=== PATIENT | female | born 1980 | race Asian ===

== ENCOUNTER 2018-05-03 06:45 | Day surgery (SDC) | payer OTHER ==
[~2018-05-03] VITALS: Ht 154.9 cm; Wt 62.0 kg
[~2018-05-03 06:45] MED LIST: SODIUM CHLORIDE 0.9% 1,000 ML IV ONE
[2018-05-03] MEDS ORDERED: LIDOCAINE 2% 30 ML JELLY TP ONE (06:46)
[2018-05-03] MEDS ORDERED: BENZOCAINE 20% 50 MCG/SPRAY 57 GM TP ONE (06:46)
[2018-05-03] MEDS ORDERED: ALBUTEROL SULFATE 2.5 MG/0.5 ML NEB SOLUTION NEB ONE (06:46)
[2018-05-03] MEDS ORDERED: LIDOCAINE 4% 50 ML SOLUTION TP ONE (06:46)
[2018-05-03] MEDS ORDERED: BUDE10.2 IH (07:29)
[2018-05-03] MEDS ORDERED: MIDAZOLAM HCL 2 MG/2 ML VIAL ONE (07:39)
[2018-05-03] MEDS ORDERED: FentaNYL CITRATE-PF 100 MCG/2 ML VIAL ONE (07:39)
[2018-05-03] MEDS ORDERED: SODIUM CHLORIDE 0.9% 1,000 ML IV ONE (08:00)
[2018-05-03] MEDS ORDERED: MethylPREDNISolone SOD SUCC 125 MG/2 ML VIAL ONE (09:10)
[2018-05-03] MEDS ORDERED: MethylPREDNISolone SOD SUCC 125 MG/2 ML VIAL IVP ONE (09:15)
[2018-05-03] MEDS ORDERED: OXYGEN THERAPY IH SCH (20:00)
== END 2018-05-03 10:25 | disposition home or self-care (01) ==
LOC: SURGERY 06:45
PROVIDERS: ATTEND Internal Medicine Critical Care Medicine
DX: J38.4 Edema of larynx (principal); B37.0 Candidal stomatitis; J84.111 Idiopathic interstitial pneumonia, not otherwise specified; J98.09 Other diseases of bronchus, not elsewhere classified; J98.8 Other specified respiratory disorders; E78.00 Pure hypercholesterolemia, unspecified; J45.998 Other asthma; Z91.013 Allergy to seafood; Z98.890 Other specified postprocedural states; Z79.899 Other long term (current) drug therapy
CPT/HCPCS: 31623; 31624; 71045; 84703; 87015; 87070; 87205; 87206; 87220; 88108; 88312; 99152; J2250; J2930; J3010; J7030

== ENCOUNTER 2022-01-06 06:22 | Day surgery (SDC) | payer OTHER ==
[~2022-01-06] VITALS: Ht 154.9 cm; Wt 61.8 kg
[~2022-01-06 06:22] MED LIST changes: +BUDE10.2 IH; -SODIUM CHLORIDE 0.9% 1,000 ML IV ONE
[2022-01-06] MEDS ORDERED: SODIUM CHLORIDE 0.9% 1,000 ML IV ONE (06:30)
[2022-01-06] MEDS ORDERED: SODIUM CHLORIDE 0.9% 1,000 ML ONE (06:32)
[2022-01-06 06:45] LABS: COVID AG,FIA SOURCE NASAL SWAB
[2022-01-06] MEDS ORDERED: PRED15SO67 PO (06:48)
[2022-01-06] MEDS ORDERED: FentaNYL CITRATE PF 100 MCG/2 ML VIAL ONE (07:32)
[2022-01-06] MEDS ORDERED: MIDAZOLAM HCL 5 MG/ML VIAL ONE (07:32)
[2022-01-06] MEDS ORDERED: MethylPREDNISolone SOD SUCC 125 MG/2 ML VIAL IVP ONE (09:30)
[2022-01-06] MEDS ORDERED: MethylPREDNISolone SOD SUCC 125 MG/2 ML VIAL ONE (09:47)
[2022-01-06] MEDS ORDERED: OXYGEN THERAPY IH SCH (20:00)
== END 2022-01-06 11:35 | disposition home or self-care (01) ==
LOC: SURGERY 06:22
PROVIDERS: ATTEND Internal Medicine Critical Care Medicine
DX: J38.4 Edema of larynx (principal); B37.0 Candidal stomatitis; Z91.013 Allergy to seafood; J45.909 Unspecified asthma, uncomplicated; Z79.899 Other long term (current) drug therapy; Z98.890 Other specified postprocedural states
CPT/HCPCS: 31623; 88112; 84703; 87206; 87101; 87220; 87070; 88305; 88312; 31624; 71045; 87015; 87426; J3010; J2930; J2250; J7030; C9803

== ENCOUNTER 2025-02-23 07:19 | Day surgery (SDC) | payer OTHER ==
[~2025-02-23] VITALS: Ht 156.2 cm; Wt 62.2 kg
[~2025-02-23 07:19] MED LIST changes: +PRED15SO81 PO; +SODIUM CHLORIDE 0.9% 1,000 ML ONE
[2025-02-23] MEDS: SODIUM CHLORIDE 0.9% 1,000 ML IV ONE (08:21)
[2025-02-23] MEDS ORDERED: FentaNYL CITRATE PF 100 MCG/2 ML VIAL ONE (08:57)
[2025-02-23] MEDS ORDERED: MIDAZOLAM HCL 2 MG/2 ML VIAL ONE (08:58)
[2025-02-23 10:25] VITALS: PULSE 72; RESP 20; O2SAT 99
[2025-02-23] MEDS ORDERED: LIDOCAINE 4% 50 ML SOLUTION ONE (15:42)
[2025-02-23] MEDS ORDERED: BENZOCAINE 20% 50 MCG/SPRAY 57 GM ONE (15:42)
[2025-02-23] MEDS ORDERED: LIDOCAINE 2% 11 ML JELLY ONE (15:42)
[2025-02-23] MEDS ORDERED: ALBUTEROL SULFATE 2.5 MG/0.5 ML NEB SOLUTION NEB ONE (15:42)
== END 2025-02-23 13:40 | disposition home or self-care (01) ==
LOC: SDS 07:19
PROVIDERS: ATTEND Internal Medicine Critical Care Medicine
DX: R05.3 Chronic cough (principal); J38.4 Edema of larynx; B37.0 Candidal stomatitis; Z98.890 Other specified postprocedural states; Z20.822 Contact with and (suspected) exposure to COVID-19; Z91.013 Allergy to seafood; Z79.899 Other long term (current) drug therapy
CPT/HCPCS: 31623; 84703; 87206; 87101; 87220; 87070; 88108; 31624; 71045; 87015; J3010; J2250; J2919; J7030; J7613; Z7610